=== PATIENT | female | born 1945 | race Caucasian/White ===

== ENCOUNTER → 2018-07-17 16:27 | Outpatient (CLI) | payer MEDICARE, OTHER, SELFPAY ==
--- NOTE | 2018-07-17 16:31 | CT_ITS ---
STUDY: CT CERVICAL SPINE WITH AND WITHOUT CONTRAST REASON FOR EXAM: Female, 73 years old. Neck pain RADIATION DOSAGE (If Supplied By Facility): CTDIvol = ( 26.12 ) mGy, DLP = ( 1203.51 ) mGycm TECHNIQUE: High resolution transaxial imaging was performed following intravenous administration of 100 ml of Isovue 370 contrast material. Sagittal and coronal images were reconstructed. Individualized dose optimization techniques were used for this CT. COMPARISON: None FINDINGS: Normal craniovertebral junction. Normal anterior atlantoaxial articulation. Normal odontoid process. Normal cervical lordosis. Normal vertebral bodies and posterior osseous elements. C2-3: There is bilateral facet hypertrophy. There is NO spinal stenosis or foraminal stenosis. C3-4: There is grade 1 anterior spondylolisthesis due to severe bilateral facet hypertrophy. There is NO spinal stenosis. There is severe LEFT foraminal stenosis and moderate RIGHT foraminal stenosis. C4-5: There is grade 1 anterior spondylolisthesis with bilateral facet hypertrophy. There is NO spinal stenosis. There is NO foraminal stenosis. C5-6: There is moderate loss of disc height. There is diffuse osteophytic ridging. Facet joints are within normal limits. There is NO spinal stenosis. There is moderate RIGHT foraminal stenosis. C6-7: There is moderate loss of disc height. There is diffuse osteophytic ridging. Facet joints are intact. There is NO spinal stenosis. There is mild bilateral foraminal stenosis. C7-T1: Normal endplates. Normal disc height and morphology. Normal central canal and intervertebral neuroforamina. Normal visualized soft tissue structures. There is normal postcontrast vascular enhancement. There is NO abnormal soft tissue enhancement. CT/Spine Cervical W/WO Contrast IMPRESSION: There are NO fractures. There are multilevel degenerative changes as described detail above. Postcontrast images demonstrate normal vascular enhancement. Electronically Signed: Manny Mauricio MD at 8:37 EDT , Service support ,
[2018-07-17 16:50] LABS: CREATININE FINGERSTICK 0.9 mg/dL (0.55-1.02); EGFR FINGERSTICK > 60.0000 mL/min (>60)
== END ==
PROVIDERS: Family Provider Family Medicine; PCP Family Medicine; Referring Provider Nurse Practitioner Acute Care; Visit Provider Nurse Practitioner Acute Care
DX: M54.2 Cervicalgia (principal); R20.0 Anesthesia of skin
CPT/HCPCS: 72127; Q9967

== ENCOUNTER 2020-06-25 14:25 | Emergency (ER) | payer MEDICARE, OTHER, SELFPAY ==
[2020-06-25 14:26] VITALS: BP 136/95; PULSE 80; RESP 16; TEMP 36.5; O2SAT 96; BMI 29.7
--- NOTE | 2020-06-25 14:54 | ED.DCSUM_ITS ---
History of Present Illness Chief Complaint: Lower Extremity Injury Informant: Patient Onset: Today Context: Sudden Onset - stepping up 1 step from garage into house; L knee gave out suddenly Timing: Continuous Quality: pain Location: left knee, mostly popliteal Current Severity: Moderate Maximum Severity: Severe Worsened by: moving & trying to WB -- unable Relieved by: remaining still Associated Symptoms: none; no other injury Narrative: Patient states in the last month she has seen Dr. Nash orthopedics several times and had 2 or 3 injections in her left knee for a meniscal tear that was diagnosed on MRI. She states his goal is to hopefully help her knee enough with the injections to avoid surgery. She states after the injection she had, things were improving, but today she was going into the house from the garage up 1 step and she states that her knee suddenly seemed to give out, and resulting in acute severe pain. She has been unable to ambulate on it since then because of that, so she presents by EMS. She had no other injury from this. Past Medical History - Allergies and Home Meds Allergies/Adverse Reactions: Allergies Iodinated Contrast Media [CONTRASTS] Adverse Reaction (Verified 06/25/20 14:26) Itching Primary Care Physician: Cyrus Nash MD [STAFF PHYSICIAN] - 3-5 Days if not improving Lives: Spouse/ Significant Other Smoking Status: Current every day smoker Review of Systems General: Denies: Chills, Fever, Sweats Eyes: Denies: Visual changes - bilaterally, Diplopia ENT: Denies: Rhinorrhea, Sore throat Cardiovascular: Denies: Chest pain, Palpitations Respiratory: Denies: Dyspnea, Cough, Dyspnea on exertion Gastrointestinal: Denies: Abdominal pain, Nausea, Vomiting, Diarrhea, Melena, Hematochezia Genitourinary: Denies: Dysuria, Hematuria, Frequency Musculoskeletal: Reports: Extremity Pain. Denies: Neck pain Skin: Denies: Rash, Wounds Neurological: Denies: Headache, Weakness, Numbness Physical Exam Vital Signs/Narrative: Vital Signs Temp Pulse Resp BP Pulse Ox 06/25/20 14:26 97.7 F L 80 16 136/95 H 96 Inital Vital Signs reviewed: Yes General: Well nourished, Well developed, Obese, No Acute Distress Head: Normocephalic, Atraumatic Eyes: Perrl, EOMI ENT: Moist mucous membranes, No rhinorrhea Neck: Supple, Nontender Respiratory: No distress Back: Nontender, Normal Inspection Extremities: No edema, Tenderness - Throughout left knee. No deformity. Excellent range of motion, able to extend fully although it is painful. Also able to flex fully. All ligaments stable, there is pain with stressing the MCL, there is a short endpoint. Negative anterior posterior drawer signs. Painless range of motion all other joints of both lower extremities. No significant effusion palpable in the left knee. Skin: Normal color, No rash, No Trauma Neurological: Alert, Oriented x3, Cranial nerves II-XII grossly intact, Normal Strength, Normal Sensation Psychological: Normal affect, Normal Mood Diagnostic/Tx/Re-eval Clinical Impression(s) from Imaging Studies Knee X-Ray 06/25/20 15:10 IMPRESSION: 1. No demonstrated fracture. 2. Trace joint effusion. Degenerative changes. Electronically Signed: Duarte Hoyos MD ([facility]) at 15:30 EDT , Service support , - Medical Decision Making X-rays are unremarkable. Patient was given morphine 2 mg IM along with prophylactic oral Zofran. On reexamination, her showed up with her knee brace from home, which gives her valgus and varus protection. We placed that on her, and she was able to stand up on both of her lower extremities, and transition herself to bedside commode. She was also able to stand up off of the commode without assistance. Offered admission for short-term rehab if she thought it was necessary but she is now able to stand and walk with a walker and comfortable going home at this time. She has her help bring her things if she needs them. Given a prescription for some Meally to use as needed, advised to follow-up with orthopedics, but x-rays show no fractures. She is neurovascularly intact distally and I do not think she has a significant neurovascular bundle injury. ED Disposition - Plan for ED Patient: Disposition: Home or Assisted Living Diagnosis: Left knee sprain Instructions: ED Sprain Knee Prescriptions: Hydrocodone Bitart/Apap 5-325 [Meally 5MG-325MG] 1 tab PO Q4H PRN PRN 2 Days #10 tab PRN Reason: Pain Prescription Printed Referrals: Cyrus Nash MD [STAFF PHYSICIAN] - 3-5 Days if not improving
--- NOTE | 2020-06-25 15:10 | RAD_ITS ---
STUDY: X-RAY - LEFT KNEE REASON FOR EXAM: Female, 75 years old. KNEE GAVE OUT THIS MORNING, PT HAS TORN MENISCUS CURRENTLY- TORN IN FEBRUARY AND GETS ROUTINE INJECTIONS, HAVING PAIN AND INSTABILITY CURRENTLY TECHNIQUE: 4 view(s) of the knee. COMPARISON: None. FINDINGS: Normal visualized distal femur. Normal visualized proximal tibia and fibula. Normal proximal tibiofibular articulation. Normal medial femorotibial compartment. Normal lateral femorotibial compartment. There is mild degenerative arthrosis of the patellofemoral articulation. There is a soft tissue prominence in the suprapatellar region suggesting a small volume joint effusion. There are atherosclerotic calcifications. RAD/Knee 4 or More Views IMPRESSION: 1. No demonstrated fracture. 2. Trace joint effusion. Degenerative changes. Electronically Signed: Duarte Hoyos MD ([facility]) at 15:30 EDT , Service support ,
[2020-06-25 16:35] VITALS: BP 124/72; PULSE 89; RESP 14; O2SAT 99
== END 2020-06-25 16:36 | disposition home or self-care (01) ==
PROVIDERS: Emergency Provider Emergency Medicine; PCP Family Medicine
DX: S83.92XA Sprain of unspecified site of left knee, initial encounter (principal); E66.9 Obesity, unspecified; F17.200 Nicotine dependence, unspecified, uncomplicated; X58.XXXA Exposure to other specified factors, initial encounter
CPT/HCPCS: 73564; 96372; 99283

== ENCOUNTER → 2020-07-29 08:46 | Outpatient (CLI) | payer MEDICARE, OTHER, SELFPAY ==
--- NOTE | 2020-07-29 08:51 | EKG12_ITS ---
Test Reason : PREOP Blood Pressure : / mmHG Vent. Rate : 078 BPM Atrial Rate : 078 BPM P-R Int : 160 ms QRS Dur : 078 ms QT Int : 402 ms P-R-T Axes : 057 046 058 degrees QTc Int : 458 ms Normal sinus rhythm Normal ECG Confirmed by VANESSA MARIE, FERNANDO ([id number]), editor magazine BRYAN RUIZ ([id number]) on 08/01/2020 12:52:06 PM Referred By: Tico Sanon Confirmed By:FERNANDO MENDEZ MD
[2020-07-29 09:25] LABS: Absolute Lymphocyte Count 1.61 X10^3/uL (0.83-4.51); Absolute Neutrophil Count 4.4 X10^3/uL (2.0-7.7); Basophil# 0.03 X10^3/uL; Basophil% 0.4 % (0-1); Eosinophil# 0.14 X10^3/uL; Eosinophils% 2.1 % (0-5); Hematocrit 43.7 % (37-47); Hemoglobin 14.1 g/dL (12.0-15.0); Lymphocyte # 1.61 X10^3/ul (4.0); Mean Corp Hgb Conc 32.3 g/dL (32-36); Mean Corpuscular Hgb 30.7 pg (27.0-32.0); Mean Platelet Vol. 10.3 fl (6.2-12.0); Monocyte# 0.55 X10^3/uL; Monocyte% 8.2 % (0-10); NRBC Flagged by Analyzer 0 % (0-5); Neutrophil # 4.36 X10^3/uL (2.7-7.7); Neutrophil % 64.9 % (47-70); Platelet Count 244 K/mm3 (150-450); RBC Distribution Width CV 14.1 % (11.6-14.6); RBC Distribution Width SD 49.2 fl (35.1-43.9); White Blood Count 6.7 K/mm3 (4.4-11.0)
[2020-07-29 09:41] LABS: Anion Gap 6 (5-15); BUN 17 mg/dL (7-18); BUN/Creat Ratio 22.3 RATIO (10-20); Calcium,Total 8.7 mg/dL (8.5-10.1); Chloride 106 mmol/L (98-107); Creatinine, Serum 0.76 mg/dL (0.55-1.02); EST Glomerular Filtration Rate 78 mL/min (>60); Est Glom Filt Rate - Afr Amer 95 mL/min (>60); Glucose 112 mg/dL (74-106); Sodium Level 139 mmol/L (136-145)
== END ==
PROVIDERS: PCP Family Medicine; Referring Provider Physician Assistant Surgical; Visit Provider Physician Assistant Surgical
DX: Z01.818 Encounter for other preprocedural examination (principal); Z11.59 Encounter for screening for other viral diseases
CPT/HCPCS: 36415; 80048; 85025; 87635; 93005; C9803; U0003

== ENCOUNTER 2020-11-30 14:49 | Outpatient (RCR) | payer MEDICARE, OTHER, SELFPAY | END 2020-11-30 23:59 | LOC: IMMUN 14:49 | PROVIDERS: PCP Family Medicine; Referring Provider Family Medicine; Visit Provider Family Medicine | DX: Z23 Encounter for immunization (principal) | CPT/HCPCS: 0011A; 0012A ==

== ENCOUNTER → 2023-12-18 | Outpatient (CLI) | payer MEDICARE, OTHER, SELFPAY ==
--- NOTE | 2023-12-18 07:40 | ART_ITS ---
Reason For Study: Decreased Pedal Pulses Procedure A bilateral lower extremity continuous wave Doppler with analog waveform analysis,segmental pressures,and ankle brachial indexes without exercise. Left Segmental Pressures Left brachial= 139mmHg. Left calf = 152mmHg. Left posterior tibial artery = 130mmHg. Left dorsalis pedis artery = 116mmHg. Left digit = 88 mmHg. The left posterior tibial artery waveforms are biphasic. The left dorsalis pedis waveforms are biphasic. Right Segmental Pressures Right brachial= 142mmHg. Right thigh = 207mmHg. Right calf = 126mmHg. Right posterior tibial artery = 118mmHg. Right dorsalis pedis artery = 106mmHg. Right digit = 78 mmHg. The right posterior tibial artery waveforms are biphasic. The right dorsalis pedis waveforms are biphasic. Indices The right ankle brachial index by the posterior tibial artery is 0.83. The right ankle brachial index by the dorsalis pedis is 0.75. The right digital-brachial index is 0.55. The left ankle brachial index by the posterior tibial artery is 0.92. The left ankle brachial index by the dorsalis pedis is 0.82. The left digital-brachial index is 0.62. VL/Lower Ext Art Exam w/o Exercis Interpretation Summary Right NOLAN 0.83, moderate arterial insufficiency. Doppler/PVR waveforms and segm ental pressures reveal distal SFA/popliteal disease Left NOLAN 0.92, mild arterial insufficiency. Doppler/PVR waveforms and segmental pressures reveal infrapopliteal disease. Ordering Physician: Evon Larkin Referring Physician: EVON LARKIN Performed By: Berny Vazquez RVT
--- NOTE | 2023-12-18 07:40 | CT_ITS ---
STUDY: CTA HEAD AND NECK WITH CONTRAST REASON FOR EXAM: Female, 78 years old. reported 80-89% R ICA stenosis by duplex RADIATION DOSAGE (If Supplied By Facility): CTDIvol = ( 29.55 ) mGy, DLP = ( 1383.10 ) mGycm TECHNIQUE: CT angiography was performed with a multi-detector CT scanner. Data acquisition was obtained from the skull base through the vertex following intravenous administration of IV 100mL Isovue-370. MIP images were reconstructed from the axial data set. Post-processing of the angiographic images was performed, with multiplanar reformation and 3D reconstruction. Individualized dose optimization techniques were used for this CT. COMPARISON: No relevant priors. FINDINGS: Normal bilateral petrous carotid arteries. There is calcified plaque formation of the right cavernous carotid artery, with a mild stenosis (less than 50%). There is calcified plaque formation of the left cavernous carotid artery, with a mild stenosis (less than 50%). Normal right A1 segments of the anterior cerebral artery. Normal left A1 segments of the anterior cerebral artery. Normal intact anterior communicating artery (ACOM). Normal bilateral A2 segments of the anterior cerebral arteries. Normal right M1 and M2 segments of the middle cerebral arteries, with a normal M1 bifurcation. Normal left M1 and M2 segments of the middle cerebral arteries, with a normal M1 bifurcation. Normal right posterior communicating artery (PCOM). Normal left posterior communicating artery (PCOM). Normal bilateral vertebral arteries. Normal basilar artery with a normal basilar bifurcation. The visualized bilateral superior cerebellar (SCA) arteries are normal. Normal bilateral P1, P2 and visualized P3 segments of the posterior cerebral arteries. There is no demonstrated aneurysm of the lower [place]. Mild degree of cerebral atrophy. No focal lesion is seen. AORTIC ARCH: There is atherosclerotic calcific plaque formation of the aortic arch and great vessels arising from the aortic arch, without a hemodynamically significant stenosis. There is a normal origin of the brachiocephalic, left common carotid, and left subclavian arteries. RIGHT CAROTID ARTERIES: There is atherosclerotic plaque formation of the common carotid artery, but without a hemodynamically significant stenosis. Normal right common carotid bulb. There is severe atherosclerotic plaque formation of the origin of the right internal carotid artery with a near complete occlusion. Atherosclerotic plaque formation in the intrahepatic petrous portion of the internal carotid artery. Normal visualized cervical portion of the right internal carotid artery. Normal origin of the right external carotid artery (ECA). LEFT CAROTID ARTERIES: Atherosclerotic calcific plaques seen at the origin of the left common carotid artery as well as the brachiocephalic artery and left subclavian artery. Normal left common carotid bulb. There is extensive atherosclerotic plaque formation of the origin of the left internal carotid artery with an estimated stenosis of greater than 70%. Normal visualized cervical portion of the left internal carotid artery. Atherosclerotic plaque formation in the left intrarenal petrous carotid artery. Normal origin of the left external carotid artery (ECA). VERTEBRAL ARTERIES: Normal bilateral vertebral arteries. CT/CTA Head AND Neck W/ Contrast IMPRESSION: High-grade stenosis at the origin of both the right and left internal carotid arteries more prominent on the left side. Electronically Signed: Gideon Haley MD at 14:32 EDT ,
[2023-12-18 08:21] LABS: CREATININE FINGERSTICK < 1.0 mg/dL (0.55-1.02)
== END | disposition home or self-care (01) ==
LOC: CT 07:34
PROVIDERS: PCP Family Medicine; Referring Provider Physician Assistant; Visit Provider Physician Assistant
DX: I65.29 Occlusion and stenosis of unspecified carotid artery (principal); I73.9 Peripheral vascular disease, unspecified
CPT/HCPCS: 70496; 70498; 93923; Q9967; A4216

== ENCOUNTER → 2023-12-24 | Outpatient (CLI) | payer MEDICARE, OTHER, SELFPAY ==
--- NOTE | 2023-12-24 13:47 | CPS ---
pt arrived to test in wheelchair. she stated she cant walk. After talking to her we agreed to try with pushing a wheelchair behind her. She was able to stand with me basically holding her up and was very weak and wobbly. We agreed she couldn't safely walk so decided to not do the test.
== END | disposition home or self-care (01) ==
LOC: PSN 13:24
PROVIDERS: PCP Family Medicine; Referring Provider Internal Medicine Critical Care Medicine; Visit Provider Internal Medicine Critical Care Medicine
DX: F17.210 Nicotine dependence, cigarettes, uncomplicated (principal)

== ENCOUNTER → 2024-01-01 | Outpatient (CLI) | payer MEDICARE, OTHER, SELFPAY | END | disposition home or self-care (01) | LOC: PSN 12:37 | PROVIDERS: PCP Family Medicine; Referring Provider Internal Medicine Critical Care Medicine; Visit Provider Internal Medicine Critical Care Medicine | DX: F17.210 Nicotine dependence, cigarettes, uncomplicated (principal) | CPT/HCPCS: 94060; 94726; 94729 ==